=== PATIENT | male | born 1960 | race Caucasian/White ===

== ENCOUNTER 2021-12-31 09:04 | Observation (INO) ==
[2021-12-31 09:38] LABS: Hematocrit (blood only) 44.7 % (42-52); Hemoglobin 16.1 g/dL (14.0-18.0); Mean Corpuscular Hemoglobin 33.1 pg (25-34); Mean Platelet Volume 10.4 fL (7.4-10.4); Platelet Count 225 K/uL (130-400); RDW Coefficient of Variation 12.9 % (11.5-14.5); RDW Standard Deviation 42.7 fL (36.4-46.3); Red Blood Count 4.86 M/uL (4.7-6.1); White Blood Count 5.44 K/uL (4.8-10.8)
[2021-12-31] MEDS ORDERED: SODIUM CHLORIDE 0.9% 500 ML IV ONE (09:38)
[2021-12-31 09:51] LABS: Troponin I < 0.03 ng/ml (0-0.04)
--- NOTE | 2021-12-31 09:51 | Emergency Department Note ---
Impression & Plan Exertional chest pain, Chronic back pain, HTN (hypertension) ED Provider Note NAME: FABIEN CHANG AGE: 61 SEX: M ARRIVES VIA: Ambulance INFORMANT: Patient ED PROVIDER(S): Philippe Sanchez MD CHIEF COMPLAINT: chest pain PLAN: Disposition: Admit MEDICAL DECISION MAKING: The patient is a pleasant 61-year-old gentleman with a past medical history of p rior smoking quitting in 2003, hypertension (started on Lisinopril last month), family history of early heart disease who [facility]. The patient reports that he has been having chest pressure with exertion that is pretty consistent over the past month or so. He reports it improves with rest. 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 He does report he has a history of chronic back pain as well as sciatica and initially wondered whether this could be related to that given he may have strained himself with his work. However he reports he has never had chest pain associated with this. He was given full-dose aspirin and nitroglycerin by EMS prior to arrival that resolved his chest pain. He denies any chest pain at this time. He reports a persistence of back pain that seems consistent with his chronic back pain. On arrival the patient is no acute distress, afebrile stable vital signs. He appears clinically dry. He has mild reproducible discomfort of the right lumbar region extending distally in sciatic distribution. Pulses are equal in all extremities. EKG without overt acute ischemia. WBC, H/H and platelets within normal limits. Chemistry without metabolic acidosis. Electrolytes and LFTs unremarkable. Troponin negative/undetectable. COVID-19 RNA, KAMRAN test was negative. CTA of the chest and abdomen pelvis was negative for acute process. In particular, no aortic pathology, no PE. No infection. Heart score 5, moderate risk. Additionally, given the patient's report of consistent exertional chest pain resolved with rest admission for further evaluation is warranted. Patient was initially in agreement for admission but then had reservations. Upon further discussion including with [facility] admitting team, he ultimately agreed with admission. Case was discussed with Fidel Mackenzie PAC, with Dominic Uman[facility] hospitalist who will evaluate the patient for admission. Triage Nursing notes reviewed and agree them. Prior medical records reviewed Vital Signs: reviewed and remarkable for hypertension. Differential diagnosis: Cardiac ischemia, aortic dissection, pulmonary embolism, pneumothorax, pneumonia, pericarditis, myocarditis, esophageal rupture, GERD, cholecystitis, pancreatitis, musculoskeletal, as well as other pathologies. ER treatment provided: See below. Diagnostics interpreted by me: ECG: Normal sinus rhythm, 61 bpm, no ectopy, no overt ST elevation or depression, QTC 390, QRS 104. Cardiac Monitoring: An order for continuous cardiac monitoring was placed and demonstrated Normal sinus rhythm, 61 bpm, no ectopy. Laboratory studies: See below Imaging studies: See below Consultation(s): Fidel Mackenzie PAC, with Fidel Umana hospitalist who will evaluate the patient for admission. HPI: The patient is a pleasant 61-year-old gentleman with a past medical history of prior smoking quitting in 2003, hypertension (started on Lisinopril last month), family history of early heart disease who presents to the emergency department [facility]. The patient reports that he has been having chest pressure with exertion that is pretty consistent over the past month or so. He reports it improves with rest. 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 He does report he has a history of chronic back pain as well as sciatica and initially wondered w hether this could be related to that given he may have strained himself with his work. However he reports he has never had chest pain associated with this. He was given aspirin and nitroglycerin by EMS prior to arrival. He denies any chest pain at this time. He reports a persistence of back pain that seems consistent with his chronic back pain. ROS: See above HPI for pertinent positives & negatives. A total of 10 systems reviewed and were otherwise negative. PAST MEDICAL HISTORY:See Below PAST SURGICAL HISTORY:See Below FAMILY HISTORY:See Below SOCIAL HISTORY:See Below HOME MEDICATIONS:See Below ALLERGIES:See Below VITALS:See Below PHYSICAL EXAMINATION: GENERAL: Awake, alert, fatigued-appearing, in no distress HENT: Normocephalic, atraumatic. Oropharynx with dry mucous membranes and otherwise unremarkable. EYES: Normal conjunctiva. Sclera non-icteric. NECK: Supple. No nuchal rigidity. FROM. No JVD. RESPIRATORY: Clear to auscultation. CARDIAC: Regular rate, normal rhythm. Extremities warm and well perfused. Pulses equal. ABDOMEN: Soft, non-distended. No tenderness to palpation. No rebound or guarding. No masses. RECTAL: Deferred. MUSCULOSKELETAL: Chest examination reveals no tenderness. The back is symmetrical on inspection without obvious abnormality. Mild reproducible discomfort of the right lumbar region extending distally in sciatic distribution. There is no CVA tenderness to palpation. No joint edema. LOWER EXTREMITIES: Calves are equal size bilaterally and non-tender. No edema. No discoloration. NEURO: Normal sensorium. No sensory or motor deficits noted. DTRs wnl. SKIN: No rash or jaundice noted. Philippe Sanchez MD Past Med/Surg History Medical History HTN (hypertension) Family History Other Heart disease Social History Smoking Status: Former smoker Feels Safe at Home: Yes Allergies Allergies Allergy/AdvReac Type Severity Reaction Status Date / Time No Known Allergies Allergy Unverified 12/31/21 13:01 Home Meds Home Medications Medication Instructions Recorded Confirmed lisinopril 20 mg tablet 20 mg PO HS 12/31/21 12/31/21 Results & Data (ED) Vital Signs Vital Signs - 24 hr 12/31/21 09:11 12/31/21 09:18 12/31/21 09:30 Temperature 36.7 C Temperature Source Oral Pulse Rate 61 66 61 Pulse Rate from SpO2 Sensor 61 61 Pulse Rhythm Regular Pulse Strength Normal Respiratory Rate 17 18 15 Respiratory Effort / Characteristics Non-Labored Spontaneous Respiratory Depth Normal Respiratory Pattern Regular Blood Pressure 154/94 H Blood Pressure Mean 114 Blood Pressure Position Sitting Pulse Oximetry 98 98 97 Oxygen Delivery Method Room Air Sepsis Recent Fever Within 48 Hours No Sepsis New/Unexplained Change in Mental Status N/A Sepsis Action Taken by Nursing No Action Required 12/31/21 10:00 Temperature Temperature Source Pulse Rate 64 Pulse Rate from SpO2 Sensor 64 Pulse Rhythm Pulse Strength Respiratory Rate 15 Respiratory Effort / Characteristics Respiratory Depth Respiratory Pattern Blood Pressure 148/86 H Blood Pressure Mean 106 Blood Pressure Position Pulse Oximetry 99 Oxygen Delivery Method Sepsis Recent Fever Within 48 Hours Sepsis New/Unexplained Change in Mental Status Sepsis Action Taken by Nursing Laboratory Data Attestation: I reviewed the patient's lab results. Result diagrams: 12/31/21 09:14 12/31/21 09:14 Lab Results 12/31/21 12/31/21 12/31/21 Range/Units 09:14 09:14 09:14 WBC 5.44 (4.8-10.8) K/uL RBC 4.86 (4.7-6.1) M/uL Hgb 16.1 (14.0-18.0) g/dL Hct 44.7 (42-52) % MCV 92.0 (80-100) fL MCH 33.1 (25-34) pg MCHC 36.0 (32-36) g/dL RDW Std Deviation 42.7 (36.4-46.3) fL RDW Coeff of Magalys 12.9 (11.5-14.5) % Plt Count 225 (130-400) K/uL MPV 10.4 (7.4-10.4) fL Immature Gran % (Auto) 0.2 % Neut % (Auto) 34.7 % Lymph % (Auto) 53.1 % [place] % (Auto) 9.2 % Eos % (Auto) 2.6 % Baso % (Auto) 0.2 % Neut # (Auto) 1.89 (1.4-6.5) K/uL Lymph # (Auto) 2.89 (1.2-3.4) K/uL [place] # (Auto) 0.50 (0.11-0.59) K/uL Eos # (Auto) 0.14 (0-0.5) K/uL Baso # (Auto) 0.01 (0-0.2) K/uL Immature Gran # (Auto) 0.01 (0.00-0.02) K/uL PT (9.0-12.0) Seconds INR (0.9-1.1) APTT (21.0-31.0) Seconds PTT Ratio Sodium 141 (136-145) mmol/L Potassium 4.1 (3.5-5.1) mmol/L Chloride 106 (98-107) mmol/L Carbon Dioxide 26 (21-32) mmol/L Anion Gap 9 (3-11) BUN 13 (6-23) mg/dl Creatinine 0.78 (0.6-1.4) mg/dl Est Cr Clr Drug Dosing 102.0 ml/min Est GFR ( Amer) 114.5 ml/min Est GFR (Non-Af Amer) 98.8 ml/min BUN/Creatinine Ratio 16.7 (10-20) Glucose 85 (70-99(Fasting)) mg/dl Calcium 9.7 (8.5-10.1) mg/dl Phosphorus 2.8 (2.5-4.9) mg/dl Magnesium 2.1 (1.7-2.4) mg/dl Total Bilirubin 1.1 H (0.2-1.0) mg/dl AST 21 (13-39) U/L ALT 26 (7-52) U/L Alkaline Phosphatase 57 (34-104) U/L Troponin I < 0.03 (0-0.04) ng/ml Total Protein 7.5 (6.0-8.3) gm/dl Albumin 4.8 (3.4-5.0) gm/dl Globulin 2.7 (2.5-4.0) gm/dl Albumin/Globulin Ratio 1.8 (0.9-2) SARS-CoV-2, RNA, NAAT (NEGATIVE) 12/31/21 12/31/21 Range/Units 09:31 10:20 WBC (4.8-10.8) K/uL RBC (4.7-6.1) M/uL Hgb (14.0-18.0) g/dL Hct (42-52) % MCV (80-100) fL MCH (25-34) pg MCHC (32-36) g/dL RDW Std Deviation (36.4-46.3) fL RDW Coeff of Magalys (11.5-14.5) % Plt Count (130-400) K/uL MPV (7.4-10.4) fL Immature Gran % (Auto) % Neut % (Auto) % Lymph % (Auto) % [place] % (Auto) % Eos % (Auto) % Baso % (Auto) % Neut # (Auto) (1.4-6.5) K/uL Lymph # (Auto) (1.2-3.4) K/uL [place]ford # (Auto) (0.11-0.59) K/uL Eos # (Auto) (0-0.5) K/uL Baso # (Auto) (0-0.2) K/uL Immature Gran # (Auto) (0.00-0.02) K/uL PT 9.7 (9.0-12.0) Seconds INR 1.0 (0.9-1.1) APTT 24.5 (21.0-31.0) Seconds PTT Ratio 0.9 Sodium (136-145) mmol/L Potassium (3.5-5.1) mmol/L Chloride (98-107) mmol/L Carbon Dioxide (21-32) mmol/L Anion Gap (3-11) BUN (6-23) mg/dl Creatinine (0.6-1.4) mg/dl Est Cr Clr Drug Dosing ml/min Est GFR ( Amer) ml/min Est GFR (Non-Af Amer) ml/min BUN/Creatinine Ratio (10-20) Glucose (70-99(Fasting)) mg/dl Calcium (8.5-10.1) mg/dl Phosphorus (2.5-4.9) mg/dl Magnesium (1.7-2.4) mg/dl Total Bilirubin (0.2-1.0) mg/dl AST (13-39) U/L ALT (7-52) U/L Alkaline Phosphatase (34-104) U/L Troponin I (0-0.04) ng/ml Total Protein (6.0-8.3) gm/dl Albumin (3.4-5.0) gm/dl Globulin (2.5-4.0) gm/dl Albumin/Globulin Ratio (0.9-2) SARS-CoV-2, RNA, NAAT NEGATIVE (NEGATIVE) Administered Medications Discontinued Medications Sodium Chloride (Nss) 500 mls @ 999 mls/hr IV .Q31M ONE Stop: 12/31/21 10:08 Last Infusion: 12/31/21 11:14 Dose: 0 mls/hr Documented by: [id number] Admin: 12/31/21 10:19 Dose: 999 mls/hr Documented by: [id number] Ioversol (Optiray 320 125ml) 120 ml IV ONCE ONE Stop: 12/31/21 12:08 Last Admin: 12/31/21 12:08 Dose: 120 ml Documented by: [id number] Imaging Data Radiologist's Impression: Abdomen/Pelvis CTA 12/31/21 10:26 CT ANGIOGRAPHY OF THE ABDOMEN AND PELVIS CLINICAL HISTORY: Chest to back/shoulder pain, radiating to R leg COMPARISON STUDY: No previous studies for comparison. TECHNIQUE: Helical axial images of the abdomen and pelvis were obtained during arterial phase following intravenous injection of 120 cc Optiray 320 IV. Sagittal and coronal reconstructed reviewed as well as maximal intensity projections on an independent 3-D workstation. Automated exposure control was utilized for the study. A dose lowering technique was utilized adhering to the principles of ALARA. FINDINGS: Please note that the chest CT will be reported separately. No pneumatosis, free air or portal venous gas is present. The caliber of the abdominal aorta is normal. There is no abdominal aortic dissection. There is moderate atherosclerotic plaque of the infrarenal abdominal aorta. Major branch vessels are patent. There is no aneurysm within the abdomen or pelvis. Arterial phase images of the liver, spleen, adrenal glands, kidneys and pancreas are unremarkable. Is no hydronephrosis. There is no biliary or pancreatic ductal dilatation. No peripancreatic or pericholecystic infiltration is present. The appendix is normal. Extensive sigmoid diverticulosis is noted without evidence for acute diverticulitis. Bladder is mildly distended. Prostate is moderately enlarged. No acute fracture or suspicious lesion is identified within the visualized skeletal structures. IMPRESSION: 1. No abdominal aortic dissection. No aneurysm. Moderate atherosclerotic plaque of the infrarenal abdominal aorta. Patent major branch vessels. 2. No acute process within the abdomen or pelvis on arterial phase exam. 3. Extensive sigmoid diverticulosis. No evidence for acute diverticulitis. 4. Enlarged prostate. ACT 112: Negative or not required by law. Electronically signed by: Josué Felix M.D. 12/31/2021 12:18 PM Chest CTA 12/31/21 10:26 CT angio chest dissec wo/w con CLINICAL HISTORY: Chest to back/shoulder pain, radiating to R leg TECHNIQUE: Multidetector row helical CT of the chest was performed before and after injection of IV contrast. Coronal and sagittal reformations were obtained. Automated dose lowering techniques and/or adjustment according to patient size were utilized for this exam. Comparison: None available at the time of this dictation. FINDINGS: Lungs and pleura: Atelectasis versus scarring is seen in the dependent portions of the lungs. Heart and pericardium: Heart size is normal. No pericardial effusion. Vessels: No aortic dissection is seen. Mediastinum and mookie: Calcifications are seen in the bilateral mookie. Chest wall and lower neck: Unremarkable. Abdomen: For findings below the diaphragm, please refer to CT of the abdomen dated the same. Bones: Degenerative changes in the thoracic spine. IMPRESSION: No acute abnormality and in particular no evidence of acute aortic injury. ACT 112: Negative or not required by law. Electronically signed by: Benji Jim M.D. 12/31/2021 12:15 PM Discharge Plan Visit Data Chief Complaint: Chest Pain Stated Complaint: CHEST PAIN ED Provider: Philippe Sanchez Discharge Problem: Exertional chest pain, Chronic back pain, HTN (hypertension) Patient Disposition: Admitted As Inpatient Discharge Instructions Interventions: ED Discharge Assessment Last Done: 12/31/21 15:00
[2021-12-31 10:01] LABS: Partial Thromboplastin Ratio 0.9; Partial Thromboplastin Time 24.5 Seconds (21.0-31.0); Prothrombin Time 9.7 Seconds (9.0-12.0)
[2021-12-31 10:05] LABS: Magnesium 2.1 mg/dl (1.7-2.4); Phosphorus 2.8 mg/dl (2.5-4.9)
[2021-12-31 10:12] LABS: Basophils # (auto) 0.01 K/uL (0-0.2); Basophils % (auto) 0.2 %; Eosinophils # (auto) 0.14 K/uL (0-0.5); Eosinophils % (auto) 2.6 %; Immature Granulocytes # (auto) 0.01 K/uL (0.00-0.02); Immature Granulocytes % (auto) 0.2 %; Lymphocytes # (auto) 2.89 K/uL (1.2-3.4); Lymphocytes % (auto) 53.1 %; Monocytes % (auto) 9.2 %; Neutrophils # (auto) 1.89 K/uL (1.4-6.5); Neutrophils % (auto) 34.7 %
[2021-12-31 11:34] LABS: Alanine Aminotransferase 26 U/L (7-52); Albumin Globulin Ratio 1.8 (0.9-2); Albumin Level 4.8 gm/dl (3.4-5.0); Alkaline Phosphatase 57 U/L (34-104); Anion Gap 9 (3-11); Aspartate Aminotransferase 21 U/L (13-39); BUN Creatinine Ratio 16.7 (10-20); Bilirubin,Total 1.1 mg/dl (0.2-1.0); Blood Urea Nitrogen 13 mg/dl (6-23); Calcium 9.7 mg/dl (8.5-10.1); Carbon Dioxide 26 mmol/L (21-32); Chloride 106 mmol/L (98-107); Est GFR (African American) 114.5 ml/min; Est GFR (Non-African American) 98.8 ml/min; Globulin 2.7 gm/dl (2.5-4.0); Glucose 85 mg/dl (70-99(Fasting)); Potassium 4.1 mmol/L (3.5-5.1); Sodium 141 mmol/L (136-145); Total Protein 7.5 gm/dl (6.0-8.3)
[2021-12-31] MEDS ORDERED: OPTIRAY 320 125ml IV ONE (12:07)
--- NOTE | 2021-12-31 12:17 | CT Scan Report ---
CT angio chest dissec wo/w con CLINICAL HISTORY: Chest to back/shoulder pain, radiating to R leg TECHNIQUE: Multidetector row helical CT of the chest was performed before and after injection of IV c ontrast. Coronal and sagittal reformations were obtained. Automated dose lowering techniques and/or a djustment according to patient size were utilized for this exam. Comparison: None available at the time of this dictation. FINDINGS: Lungs and pleura: Atelectasis versus scarring is seen in the dependent portions of the lungs. Heart and pericardium: Heart size is normal. No pericardial effusion. Vessels: No aortic dissection is seen. Mediastinum and mookie: Calcifications are seen in the bilateral mookie. Chest wall and lower neck: Unremarkable. Abdomen: For findings below the diaphragm, please refer to CT of the abdomen dated the same. Bones: Degenerative changes in the thoracic spine. IMPRESSION: No acute abnormality and in particular no evidence of acute aortic injury. ACT 112: Negative or not required by law. Electronically signed by: Benji Jim M.D. 12/31/2021 12:15 PM
--- NOTE | 2021-12-31 12:19 | CT Scan Report ---
CT ANGIOGRAPHY OF THE ABDOMEN AND PELVIS CLINICAL HISTORY: Chest to back/shoulder pain, radiating to R leg COMPARISON STUDY: No previous studies for comparison. TECHNIQUE: Helical axial images of the abdomen and pelvis were obtained during arterial phase followi ng intravenous injection of 120 cc Optiray 320 IV. Sagittal and coronal reconstructed reviewed as wel l as maximal intensity projections on an independent 3-D workstation. Automated exposure control was utilized for the study. A dose lowering technique was utilized adhering to the principles of ALARA. FINDINGS: Please note that the chest CT will be reported separately. No pneumatosis, free air or port al venous gas is present. The caliber of the abdominal aorta is normal. There is no abdominal aortic dissection. There is moderate atherosclerotic plaque of the infrarenal abdominal aorta. Major branch vessels are patent. There is no aneurysm within the abdomen or pelvis. Arterial phase images of the l iver, spleen, adrenal glands, kidneys and pancreas are unremarkable. Is no hydronephrosis. There is n o biliary or pancreatic ductal dilatation. No peripancreatic or pericholecystic infiltration is prese nt. The appendix is normal. Extensive sigmoid diverticulosis is noted without evidence for acute dive rticulitis. Bladder is mildly distended. Prostate is moderately enlarged. No acute fracture or suspic ious lesion is identified within the visualized skeletal structures. IMPRESSION: 1. No abdominal aortic dissection. No aneurysm. Moderate atherosclerotic plaque of the infrarenal abd ominal aorta. Patent major branch vessels. 2. No acute process within the abdomen or pelvis on arterial phase exam. 3. Extensive sigmoid diverticulosis. No evidence for acute diverticulitis. 4. Enlarged prostate. ACT 112: Negative or not required by law. Electronically signed by: Josué Felix M.D. 12/31/2021 12:18 PM
--- NOTE | 2021-12-31 12:48 | History & Physical Report ---
Date of Service December 31, 2021 Assessment & Plan (1) Chest pain: (2) HTN (hypertension): Plan: - Admit to tele for observation for r/o - Given 324 asa and 1 nitro for pain in EMS on way to the ER. No chest pain presently - Trend cardiac biomarkers, initial set was negative, trend x 2 more set - EKG reviewed as above - without signs of ischemia, ST wave inversion. - Continue lisionpril 20 mg daily - Check 2 D echo - If negative enzymes can consider a stress test tomorrow morning. Will make NPO after midnight in anticipation of such. - pt is agreeable to stay overnight after discussion about moderate risk for ACS and IA. [facility] DVT ppx: - Teds, scds CODE: FULL Dispo: Observation overnight, likely dc tomorrow History of Present Illness Chief Complaint: Chest pain Primary Care Provider: NO PCP This is a 61 yo M with PMhx of HTN, who presents with chest pain. He reports that this has been ongoing for x1 month and seems to be worse with exertional activity, and improves at rest. Patient reports his job has recently been more exertional, with a repetative lifting/ pulling motion from the ground up, and feels this primarily in his back. He has long standing back issues for which he takes a lot of ibuprofen. This delegated work task is new, and exacerbating his pain. Pt experiences left-sided chest pain moving through into his back or vice versa, with pain really starting in the back and moving towards his chest. He admits to shortness of breath on exertion, denies lightheadedness or dizziness, denies radiation of pain to any other area. Today was the patient's first visit seeing the [facility] in [place], as [facility] [place], and feels irritated because of being sent to the hospital from this new facility. He has been aware of elevated blood pressure over the past 1 year and was recently started on Lisionpril 2 weeks ago. Pt also notes drinking plenty of water, eating habits are fair due to working long hours. He has lost 12 lbs in the past month unintentionally and normally weighs 200lbs, today was 188. He denies night sweats, lymphadenopathy, or other B type symptoms. Family Hx: significant heart disease including his mother who in her 40s from cardiac disease, breast cancer preceded this. He also has a sister with cardiac disease. 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 Makes $350 per night and is afraid of losing the money to stay overnight here in the hospital. Remote smoking hx 20 years ago. Remote alcohol use 30 years ago. Allergies Allergy/AdvReac Type Severity Reaction Status Date / Time No Known Allergies Allergy Unverified 12/31/21 13:01 Home Medications Medication Instructions Recorded Confirmed Type lisinopril 20 mg tablet 20 mg PO DAILY 12/31/21 12/31/21 History Past Med/Surg History Social History Smoking Status: Former smoker Feels Safe at Home: Yes Review of Systems Review of Systems: Constitutional: No fever, sweats or chills Eyes: No diplopia, no worsening or blurred vision ENT: normal hearing, no trouble swallowing Respiratory: No cough, sputum, +dyspnea on exertion which improves at rest Cardiovascular: +chest pain as per HPI, none currently, denies tightness or palpitations Abdomen: No pain, nausea, vomiting, diarrhea or constipation, + weight loss of 12 lbs unintentionally Back: chronic back pain Musculoskeletal: No joint pain, calf pain, swelling Neurologic: No weakness, numbness/tingling, or balance problems Psychiatric: No anxiety or depression Skin: No rash or itch Physical Exam Physical Exam: General: awake, alert, no apparent distress Head: Normocephalic, atraumatic ENT: PERRL, EOMI, no pharyngeal exudate, mucous membranes moist Chest: Clear to auscultation, on room air, no adventitious breath sounds Cardiac: Regular rate and rhythm, no murmur, no JVD, normal peripheral pulses, good capillary refill, no carotid bruits Abdominal: NABS x 4 quadrants, soft, nondistended, nontender to palpation, no rebound or guarding Extremities: Normal inspection, no peripheral edema or erythema, calfs nontender to palpation Psych: Normal mood and affect Neuro: AAO x 3, strength intact bilaterally and rated 5/5, no motor deficits, speech is clear, no peripheral sensory deficits Results & Data Results & Data ([facility]) Vital Signs (Past 12 Hours) Vital Signs Temp Pulse Resp BP Pulse Ox 12/31/21 10:00 64 15 148/86 H 99 02/09/22 09:30 61 15 97 12/31/21 09:18 36.7 C 66 18 154/94 H 98 12/31/21 09:11 61 17 98 Laboratory Results 12/31/21 12/31/21 12/31/21 10:20 09:31 09:14 WBC RBC Hgb Hct MCV MCH MCHC RDW Std Deviation RDW Coeff of Magalys Plt Count MPV Immature Gran % (Auto) Neut % (Auto) Lymph % (Auto) Trinity % (Auto) Eos % (Auto) Baso % (Auto) Neut # (Auto) Lymph # (Auto) Trinity # (Auto) Eos # (Auto) Baso # (Auto) Immature Gran # (Auto) PT 9.7 INR 1.0 APTT 24.5 PTT Ratio 0.9 Sodium Potassium Chloride Carbon Dioxide Anion Gap BUN Creatinine Est Cr Clr Drug Dosing Est GFR ( Amer) Est GFR (Non-Af Amer) BUN/Creatinine Ratio Glucose Calcium Phosphorus 2.8 Magnesium 2.1 Total Bilirubin AST ALT Alkaline Phosphatase Troponin I Total Protein Albumin Globulin Albumin/Globulin Ratio SARS-CoV-2, RNA, NAAT NEGATIVE 12/31/21 12/31/21 09:14 09:14 WBC 5.44 RBC 4.86 Hgb 16.1 Hct 44.7 MCV 92.0 MCH 33.1 MCHC 36.0 RDW Std Deviation 42.7 RDW Coeff of Magalys 12.9 Plt Count 225 MPV 10.4 Immature Gran % (Auto) 0.2 Neut % (Auto) 34.7 Lymph % (Auto) 53.1 Trinity % (Auto) 9.2 Eos % (Auto) 2.6 Baso % (Auto) 0.2 Neut # (Auto) 1.89 Lymph # (Auto) 2.89 Trinity # (Auto) 0.50 Eos # (Auto) 0.14 Baso # (Auto) 0.01 Immature Gran # (Auto) 0.01 PT INR APTT PTT Ratio Sodium 141 Potassium 4.1 Chloride 106 Carbon Dioxide 26 Anion Gap 9 BUN 13 Creatinine 0.78 Est Cr Clr Drug Dosing 102.0 Est GFR ( Amer) 114.5 Est GFR (Non-Af Amer) 98.8 BUN/Creatinine Ratio 16.7 Glucose 85 Calcium 9.7 Phosphorus Magnesium Total Bilirubin 1.1 H AST 21 ALT 26 Alkaline Phosphatase 57 Troponin I < 0.03 Total Protein 7.5 Albumin 4.8 Globulin 2.7 Albumin/Globulin Ratio 1.8 SARS-CoV-2, RNA, NAAT Diagnostic Findings Abdomen/Pelvis CTA 12/31/21 10:26 CT ANGIOGRAPHY OF THE ABDOMEN AND PELVIS CLINICAL HISTORY: Chest to back/shoulder pain, radiating to R leg COMPARISON STUDY: No previous studies for comparison. TECHNIQUE: Helical axial images of the abdomen and pelvis were obtained during arterial phase following intravenous injection of 120 cc Optiray 320 IV. Sagittal and coronal reconstructed reviewed as well as maximal intensity projections on an independent 3-D workstation. Automated exposure control was utilized for the study. A dose lowering technique was utilized adhering to the principles of ALARA. FINDINGS: Please note that the chest CT will be reported separately. No pneumatosis, free air or portal venous gas is present. The caliber of the abdominal aorta is normal. There is no abdominal aortic dissection. There is moderate atherosclerotic plaque of the infrarenal abdominal aorta. Major branch vessels are patent. There is no aneurysm within the abdomen or pelvis. Arterial phase images of the liver, spleen, adrenal glands, kidneys and pancreas are unremarkable. Is no hydronephrosis. There is no biliary or pancreatic ductal dilatation. No peripancreatic or pericholecystic infiltration is present. The appendix is normal. Extensive sigmoid diverticulosis is noted without evidence for acute diverticulitis. Bladder is mildly distended. Prostate is moderately enlarged. No acute fracture or suspicious lesion is identified within the visualized skeletal structures. IMPRESSION: 1. No abdominal aortic dissection. No aneurysm. Moderate atherosclerotic plaque of the infrarenal abdominal aorta. Patent major branch vessels. 2. No acute process within the abdomen or pelvis on arterial phase exam. 3. Extensive sigmoid diverticulosis. No evidence for acute diverticulitis. 4. Enlarged prostate. ACT 112: Negative or not required by law. Electronically signed by: Josué Felix M.D. 12/31/2021 12:18 PM Chest CTA 12/31/21 10:26 CT angio chest dissec wo/w con CLINICAL HISTORY: Chest to back/shoulder pain, radiating to R leg TECHNIQUE: Multidetector row helical CT of the chest was performed before and after injection of IV contrast. Coronal and sagittal reformations were obtained. Automated dose lowering techniques and/or adjustment according to patient size were utilized for this exam. Comparison: None available at the time of this dictation. FINDINGS: Lungs and pleura: Atelectasis versus scarring is seen in the dependent portions of the lungs. Heart and pericardium: Heart size is normal. No pericardial effusion. Vessels: No aortic dissection is seen. Mediastinum and mookie: Calcifications are seen in the bilateral mookie. Chest wall and lower neck: Unremarkable. Abdomen: For findings below the diaphragm, please refer to CT of the abdomen dated the same. Bones: Degenerative changes in the thoracic spine. IMPRESSION: No acute abnormality and in particular no evidence of acute aortic injury. ACT 112: Negative or not required by law. Electronically signed by: Benji Jim M.D. 12/31/2021 12:15 PM ECG Additional Comments: 31-DEC-2021 09:08:34 [facility]-EDSTAT ROUTINE RETRIEVAL Normal sinus rhythm Normal ECG No previous ECGs available 25mm/s 10mm/mV 150Hz 9.0.9 12SL 241 LEEANNE: 10 Unconfirmed Vent. rate 61 BPM IA interval 150 ms QRS duration 104 ms QT/QTc 388/390 ms Code Status & VTE Plan Code Status Full code Supervising Physician Co-Signing Physician Notes I have seen and examined the patient and have discussed the case with the provider above. I agree with the assessment and plan as stated with the following exceptions. 61 yo nonsmoker who presented with one month of worsening substernal, exertional chest pain. He reports chest pain improves with rest and feels like it comes from his mid upper back. 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 He also reports starting Lisinopril 20mg nightly as a new medication two weeks ago. He states he is seen by a primary care physician at the [facility] who felt his blood pressure was too high over the past year. He denies any adverse side effects since starting this medication. He denies any associated symptoms of sweating, palpitations, lightheadedness, or SOB. He is clearly an active man and a hard worker. Physical exam reveals a muscular man in NAD who is mentating clearly. Cardiac exam reveals regular rate and rhythm with S1/2 heard and no murmurs, gallops or rubs. Radial pulses are 2+ bilaterally and extremities are warm and well- perfused. Lungs are clear to auscultation and there is no increased respiratory effort. Abdomen is soft NTND. There is no JVD or elevated JVP. There are no carotid bruits or abdominal bruits heard. Moves all extremities with ease. EKG reveals sinus rhythm with a rate of 61 bpm and no evidence of ischemia. Troponin is negative. CBC, BMP is normal. Chest CTA is normal, and CTA of the abdomen and pelvis reveals extensive sigmoid diverticulosis without evidence of acute diverticulitis, moderately enlarged prostate and moderate atherosclerotic plaque of the infrarenal abdominal aorta with patent branch vessels. Agree with plan for admission, serial troponin to rule out ACS, 2D cardiac echo, and cardiology consultation. Lipid panel in am along with screening hemoglobin A1C. He received ASA 324 in route to the ER; will cont ASA 81mg daily. Add Lipitor 80mg now and daily out of concern for plaque rupture. Heart rate in the low 60s precludes the addition of a beta mariano. NPO after midnight in case of stress test in am. Repeat EKG in am and monitor on telemetry overnight. Nitro, morphine PRN in case of pain overnight. Lovenox for DVT prophylaxis. Jamilah Jacobs DO [facility] Hospitalist
[2021-12-31] MEDS ORDERED: ACETAMINOPHEN 325 MG TAB PO PRN (15:03)
[2021-12-31] MEDS ORDERED: ONDANSETRON INJ 2 MG/ML 2 ML VIAL IV PRN (15:03)
[2021-12-31] MEDS ORDERED: ENOXAPARIN INJ 40 MG/0.4 ML SYR SQ SCH (21:00)
[2021-12-31] MEDS ORDERED: lisinopril 20 MG TAB PO SCH (21:00)
[2021-12-31] MEDS: ATORVASTATIN 40 MG TAB PO SCH (21:11)
[2022-01-01 06:00] LABS: Eosinophils # (auto) 0.08 K/uL (0-0.5); Eosinophils % (auto) 1.6 %; Hematocrit (blood only) 42.7 % (42-52); Hemoglobin 15.1 g/dL (14.0-18.0); Immature Granulocytes # (auto) 0.01 K/uL (0.00-0.02); Immature Granulocytes % (auto) 0.2 %; Lymphocytes # (auto) 2.19 K/uL (1.2-3.4); Lymphocytes % (auto) 43.9 %; Mean Corpuscular Hemoglobin 32.6 pg (25-34); Mean Corpuscular Hgb Conc 35.4 g/dL (32-36); Mean Corpuscular Volume 92.2 fL (80-100); Mean Platelet Volume 10.3 fL (7.4-10.4); Neutrophils # (auto) 2.31 K/uL (1.4-6.5); Neutrophils % (auto) 46.3 %; Platelet Count 204 K/uL (130-400); RDW Coefficient of Variation 12.9 % (11.5-14.5); RDW Standard Deviation 43.7 fL (36.4-46.3); Red Blood Count 4.63 M/uL (4.7-6.1); White Blood Count 4.99 K/uL (4.8-10.8)
[2022-01-01 06:24] LABS: Chol HDL Ratio 3.8 (0-5)
--- NOTE | 2022-01-01 08:38 | Cardiology Consultation ---
Date of Consultation January 01, 2022 Assessment & Plan (1) Exertional chest pain: (2) GOODRICH (dyspnea on exertion): Exertional chest pain and shortness of breath with work related activities. Patient NOT reproducible to palpitation. EKG normal, Troponins negative x3, no coronary calcium noted on chest CT. Given somewhat typical chest pain symptoms will rule out ischemia while patient is inpatient. Risk factors for CAD include HTN, HLD, and family history. 1. GAGE ordered- okay to just do stress portion as resting was completed yesterday 2. Remain NPO till GAGE is complete. 3. Should testing come back negative okay to discharge from a cardiology standpoint with plans to optimize risk factors (blood pressure control and statin therapy). 4. Recommend follow up with cardiology in 4-6 weeks outpatient. (3) HTN (hypertension): Hx of hypertension, on Lisinopril. Will access blood pressure response to stress/exercise. (4) Chronic back pain: Chronic back pain could be contributing to his discomfort. Patient does work a laborious job and does repetitive movements. However, pain was not reproducible to palpations. Case discussed with Dr. Espinal. Supervising Physician Attestation: I have personally performed a history and physical examination on the patient. I agree with the Luz Guzman's findings and plan as documented with the following additions. Subjective: Pt seen prior to , during, post exercise stress echocardiogram. Pt reports no additional chest pain overnight. Exam: No edema Regular rhythm. Data: Cardiac Enzymes 12/31/21 12/31/21 12/31/21 Range/Units 09:14 15:55 21:02 AST 21 (13-39) U/L Troponin I < 0.03 < 0.03 (0-0.04) ng/ml Lipids 01/01/22 Range/Units 05:17 Triglycerides 85 (0-150) mg/dl Cholesterol 195 (0-200) mg/dl HDL Cholesterol 51 mg/dl Cholesterol/HDL Ratio 3.8 (0-5) Stress echocardiogram, negative for ischemia, having exercised into stage III of a Jamel protocol. Presenting symptoms were not reproduced with exercise. Hypertensive BP response to exercise observed, with SBP 234 mm Hg at peak exercise. Assessment and Plan: Chest discomfort , negative stress echo -perhaps related to radicular pain from back / disc disease -consider outpatient spine work up (imaging, trial of PT) GOODRICH demonstrated excellent objective activity toelrance on treadmill. Resting/ post exercise LVEF normal, no significant valvular heart disease No clinical CHF HTN Pt reports lisinopril recently increased from 10 mg to 20 mg within the last 2 weeks. I would recommend he takes this medication in the am in stead of PM. Follow up as outpatient and titrate as necessary. Mild Dyslipidemia Discharge on atorvastatin 10 mg daily. DISPOSITION: Stable for discharge from a cardiology standpoint. Can follow up with primary care ([place] [facility]) for ongoing care as noted above. Return to cardiology on an as needed basis should future concerns arise. Cesar Espinal DO History of Present Illness Reason for Consultation: Chest pain and HTN Requesting Physician: [facility] Hospitalist Attending Physician: Andrei Nieves MD History of Present Illness 61 year old male who presented for chest pain x1 month. Described as left sided discomfort that radiates to his back/shoulders/neck and vice versa. Worse with activity (specifically work duties), improves with rest. Notes worsening shortness of breath (like he is breathing in a box). Doesn't necessarily notice symptoms walking up hills or steps.He has lost 12 lbs in the past month unintentionally and normally weighs 200lbs, today was 188.Primarily follows with the [place] and recently switched from [facility] to the [place] in [place]. Has not seen a provider in [facility] before and notes that he is very healthy and never required coming to the hospital. 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 Upon entrance into the room patient was resting comfortably in room. Currently chest pain free. No shortness of breath, palpitations, dizziness, syncope or near syncope. No orthopnea, PND, or increased lower extremity edema. He does not a history of chronic back pain. Tele: SR 60s. EKG 12/31/2021: NSR 61 bpm Echo showed LVEF 60-65%, no significant valve abnormalities, RV function normal. Chest CTA: No acute abnormality and in particular no evidence of acute aortic injury. No coronary artery calcifications see. No pericardial effusions. Trop negative x3 Lipids: TG 85, Cholesterol 195, LDL 127, HDL 51 Renal function stable. CBC stable. Covid Negative Hx of smoking x20 years ago, remote alcohol use 30 years ago. Family Hx: significant heart disease including his mother who in her 40s from cardiac disease, breast cancer preceded this. He also has a sister with cardiac disease. PMH: HTN Chronic back pain with ongoing NSAID use Allergies Allergy/AdvReac Type Severity Reaction Status Date / Time No Known Allergies Allergy Unverified 12/31/21 13:01 Home Medications Medication Instructions Recorded Confirmed Type lisinopril 20 mg tablet 20 mg PO HS 12/31/21 12/31/21 History Patient History Medical History HTN (hypertension) Family History Other Heart disease Social History Smoking Status: Never smoker Hx Alcohol Use: No Hx Substance Use: No Preferred Language: Maltese Communication Ability: Effective Race Car Driver Required: No Beliefs That Will Affect Care: None Current Living Situation: Alone Feels Safe at Home: Declines to Answer Safety Concerns: Feels Safe At This Time Assistive Devices: None Review of Systems Review of Systems: All systems reviewed & are unremarkable except as noted in HPI & below Physical Exam Physical Exam: General: No acute distress. A+Ox3. HEENT: Normocephalic. Atraumatic. Conjunctiva and sclera clear. NECK: No carotid bruits. No JVD. Carotid upstrokes are brisk. Heart: RRR. S1 and S2 noted without murmur, rubs, gallops. PMI non displaced. Lungs: Clear to auscultation. No wheezes, rhonchi, rales. Abdomen: Normal bowel sounds. Soft. Nontender. No masses or organomegaly. No abdominal bruits. Extremities: No edema. No clubbing or cyanosis. Pulses: radial=2/4, posterior tibial=2/4, dorsalis pedis = 2/4. NEURO: No focal deficits. PSYCH: Normal. Results & Data ([facility]) Vital Signs (Past 12 Hours) Vital Signs Temp Pulse Pulse Resp BP BP Pulse Ox 01/01/22 07:28 36.7 C 60 20 142/79 H 95 01/01/22 03:59 64 18 122/65 95 12/31/21 23:58 66 18 120/61 96 12/31/21 22:00 68 14 12/31/21 21:30 63 20 02/09/22 21:00 66 28 H 12/31/21 20:30 73 15 Laboratory Results 01/01/22 01/01/22 01/01/22 Range/Units 05:17 05:17 05:17 WBC 4.99 (4.8-10.8) K/uL RBC 4.63 L (4.7-6.1) M/uL Hgb 15.1 (14.0-18.0) g/dL Hct 42.7 (42-52) % MCV 92.2 (80-100) fL MCH 32.6 (25-34) pg MCHC 35.4 (32-36) g/dL RDW Std Deviation 43.7 (36.4-46.3) fL RDW Coeff of Magalys 12.9 (11.5-14.5) % Plt Count 204 (130-400) K/uL MPV 10.3 (7.4-10.4) fL Immature Gran % (Auto) 0.2 % Neut % (Auto) 46.3 % Lymph % (Auto) 43.9 % Denton % (Auto) 8.0 % Eos % (Auto) 1.6 % Baso % (Auto) 0.0 % Neut # (Auto) 2.31 (1.4-6.5) K/uL Lymph # (Auto) 2.19 (1.2-3.4) K/uL Denton # (Auto) 0.40 (0.11-0.59) K/uL Eos # (Auto) 0.08 (0-0.5) K/uL Baso # (Auto) 0.00 (0-0.2) K/uL Immature Gran # (Auto) 0.01 (0.00-0.02) K/uL Sodium (136-145) mmol/L Potassium (3.5-5.1) mmol/L Chloride (98-107) mmol/L Carbon Dioxide (21-32) mmol/L Anion Gap (3-11) BUN (6-23) mg/dl Creatinine (0.6-1.4) mg/dl Est Cr Clr Drug Dosing ml/min Est GFR ( Amer) ml/min Est GFR (Non-Af Amer) ml/min BUN/Creatinine Ratio (10-20) Glucose (70-99(Fasting)) mg/dl Estimat Average Glucose Pending Hemoglobin A1c Pending Calcium (8.5-10.1) mg/dl Magnesium 2.0 (1.7-2.4) mg/dl Total Bilirubin (0.2-1.0) mg/dl AST (13-39) U/L ALT (7-52) U/L Alkaline Phosphatase (34-104) U/L Troponin I (0-0.04) ng/ml Total Protein (6.0-8.3) gm/dl Albumin (3.4-5.0) gm/dl Globulin (2.5-4.0) gm/dl Albumin/Globulin Ratio (0.9-2) Triglycerides 85 (0-150) mg/dl Cholesterol 195 (0-200) mg/dl LDL Cholesterol, Calc 127 mg/dl VLDL Cholesterol, Calc 17 (0-30) mg/dl HDL Cholesterol 51 mg/dl Cholesterol/HDL Ratio 3.8 (0-5) SARS-CoV-2, RNA, NAAT (NEGATIVE) 12/31/21 12/31/21 12/31/21 Range/Units 21:02 15:55 10:20 WBC (4.8-10.8) K/uL RBC (4.7-6.1) M/uL Hgb (14.0-18.0) g/dL Hct (42-52) % MCV (80-100) fL MCH (25-34) pg MCHC (32-36) g/dL RDW Std Deviation (36.4-46.3) fL RDW Coeff of Magalys (11.5-14.5) % Plt Count (130-400) K/uL MPV (7.4-10.4) fL Immature Gran % (Auto) % Neut % (Auto) % Lymph % (Auto) % Denton % (Auto) % Eos % (Auto) % Baso % (Auto) % Neut # (Auto) (1.4-6.5) K/uL Lymph # (Auto) (1.2-3.4) K/uL Denton # (Auto) (0.11-0.59) K/uL Eos # (Auto) (0-0.5) K/uL Baso # (Auto) (0-0.2) K/uL Immature Gran # (Auto) (0.00-0.02) K/uL Sodium (136-145) mmol/L Potassium (3.5-5.1) mmol/L Chloride (98-107) mmol/L Carbon Dioxide (21-32) mmol/L Anion Gap (3-11) BUN (6-23) mg/dl Creatinine (0.6-1.4) mg/dl Est Cr Clr Drug Dosing ml/min Est GFR ( Amer) ml/min Est GFR (Non-Af Amer) ml/min BUN/Creatinine Ratio (10-20) Glucose (70-99(Fasting)) mg/dl Estimat Average Glucose Hemoglobin A1c Calcium (8.5-10.1) mg/dl Magnesium (1.7-2.4) mg/dl Total Bilirubin (0.2-1.0) mg/dl AST (13-39) U/L ALT (7-52) U/L Alkaline Phosphatase (34-104) U/L Troponin I < 0.03 < 0.03 (0-0.04) ng/ml Total Protein (6.0-8.3) gm/dl Albumin (3.4-5.0) gm/dl Globulin (2.5-4.0) gm/dl Albumin/Globulin Ratio (0.9-2) Triglycerides (0-150) mg/dl Cholesterol (0-200) mg/dl LDL Cholesterol, Calc mg/dl VLDL Cholesterol, Calc (0-30) mg/dl HDL Cholesterol mg/dl Cholesterol/HDL Ratio (0-5) SARS-CoV-2, RNA, NAAT NEGATIVE (NEGATIVE) 12/31/21 Range/Units 09:14 WBC (4.8-10.8) K/uL RBC (4.7-6.1) M/uL Hgb (14.0-18.0) g/dL Hct (42-52) % MCV (80-100) fL MCH (25-34) pg MCHC (32-36) g/dL RDW Std Deviation (36.4-46.3) fL RDW Coeff of Magalys (11.5-14.5) % Plt Count (130-400) K/uL MPV (7.4-10.4) fL Immature Gran % (Auto) % Neut % (Auto) % Lymph % (Auto) % Denton % (Auto) % Eos % (Auto) % Baso % (Auto) % Neut # (Auto) (1.4-6.5) K/uL Lymph # (Auto) (1.2-3.4) K/uL Denton # (Auto) (0.11-0.59) K/uL Eos # (Auto) (0-0.5) K/uL Baso # (Auto) (0-0.2) K/uL Immature Gran # (Auto) (0.00-0.02) K/uL Sodium 141 (136-145) mmol/L Potassium 4.1 (3.5-5.1) mmol/L Chloride 106 (98-107) mmol/L Carbon Dioxide 26 (21-32) mmol/L Anion Gap 9 (3-11) BUN 13 (6-23) mg/dl Creatinine 0.78 (0.6-1.4) mg/dl Est Cr Clr Drug Dosing 102.0 ml/min Est GFR ( Amer) 114.5 ml/min Est GFR (Non-Af Amer) 98.8 ml/min BUN/Creatinine Ratio 16.7 (10-20) Glucose 85 (70-99(Fasting)) mg/dl Estimat Average Glucose Hemoglobin A1c Calcium 9.7 (8.5-10.1) mg/dl Magnesium (1.7-2.4) mg/dl Total Bilirubin 1.1 H (0.2-1.0) mg/dl AST 21 (13-39) U/L ALT 26 (7-52) U/L Alkaline Phosphatase 57 (34-104) U/L Troponin I (0-0.04) ng/ml Total Protein 7.5 (6.0-8.3) gm/dl Albumin 4.8 (3.4-5.0) gm/dl Globulin 2.7 (2.5-4.0) gm/dl Albumin/Globulin Ratio 1.8 (0.9-2) Triglycerides (0-150) mg/dl Cholesterol (0-200) mg/dl LDL Cholesterol, Calc mg/dl VLDL Cholesterol, Calc (0-30) mg/dl HDL Cholesterol mg/dl Cholesterol/HDL Ratio (0-5) SARS-CoV-2, RNA, NAAT (NEGATIVE) (1) Chronic back pain Back pain laterality: unspecified Back pain location: low back pain Sciatica laterality: sciatica of right side Sciatica presence: with sciatica Qualified Code(s): M54.41 - Lumbago with sciatica, right side; G89.29 - Other chronic pain (2) HTN (hypertension) Hypertension type: unspecified Qualified Code(s): I10 - Essential (primary) hypertension
[2022-01-01] MEDS: ATORVASTATIN 40 MG TAB PO SCH (08:48)
[2022-01-01 12:43] LABS: Estimated Average Glucose 100 mg/dl; Hemoglobin A1C 5.1 % (4.5-5.6)
--- NOTE | 2022-01-02 06:21 | Electrocardiogram Report ---
Test Reason : Blood Pressure : / mmHG Vent. Rate : 061 BPM Atrial Rate : 061 BPM P-R Int : 150 ms QRS Dur : 104 ms QT Int : 388 ms P-R-T Axes : 000 010 046 degrees QTc Int : 390 ms Normal sinus rhythm Normal ECG No previous ECGs available Confirmed by Isidro Byrnes ([id number]) on 01/02/2022 6:21:20 AM Referred By: Confirmed By:Isidro Byrnes
[2022-01-02] MEDS ORDERED: ATORVASTATIN 10 MG TAB PO SCH (09:00)
== END 2022-01-01 17:50 | disposition home or self-care (01) ==
LOC: EDINP 09:04 → ED 09:04 → SUATTDRO 13:36 → EDINP 15:00